=== PATIENT | male | born 1960 | race Caucasian/White ===

== ENCOUNTER → 2016-12-28 | Outpatient (CLI) | payer OTHER ==
[~2016-12-28] MED LIST: ASPIRIN81 M1 PO; FLOMAX0.4 MG PO; HYDROCODONE BIT1 T11 PO; LISINOPRIL10 M1 PO; NAPROSYN500 MG PO
== END | disposition home or self-care (01) ==
LOC: ORTHO 03:57
DX: S83.141A Lateral subluxation of proximal end of tibia, right knee, initial encounter (principal); S83.142A Lateral subluxation of proximal end of tibia, left knee, initial encounter; M25.511 Pain in right shoulder; X58.XXXA Exposure to other specified factors, initial encounter; Y93.89 Activity, other specified; Y92.89 Other specified places as the place of occurrence of the external cause; Y99.8 Other external cause status

== ENCOUNTER → 2018-08-22 | Outpatient (CLI) | payer OTHER | LOC: RAD 15:09 | DX: M17.0 Bilateral primary osteoarthritis of knee (principal) ==

== ENCOUNTER 2019-09-17 18:25 | Emergency (ER) | payer SELFPAY ==
[~2019-09-17] VITALS: Ht 167.6 cm; Wt 95.3 kg
[2019-09-17 19:04] LABS: BASO % 0.2 % (0.0-1.0); EOS # 0.3 10*3/uL (0.0-0.4); EOS % 2.8 % (1.0-4.0); HEMATOCRIT 49.9 % (42.0-52.0); HEMOGLOBIN 16.5 g/dl (14.0-18.0); LYMPH % 22.3 % (27.0-41.0); MEAN CORPUSCULAR HGB 29.1 pg (27.0-31.0); MEAN CORPUSCULAR HGB CONC 33.1 g/dl (33.0-37.0); MEAN PLATELET VOLUME 9.4 fl (9.6-12.3); MONO # 0.7 10*3/uL (0.1-1.0); MONO % 7.7 % (3.0-9.0); NEUT % 66.7 % (47.0-73.0); PLATELET COUNT AUTOMATED 234 10*3/uL (130-400); RED BLOOD COUNT 5.67 10*6/uL (4.50-5.90); RED CELL DISTRI WIDTH 13.4 % (0-14.5)
[2019-09-17 19:19] LABS: ALBUMIN 3.7 gm/dl (3.1-4.5); ALKALINE PHOSPHATASE 70 U/L (45-117); BUN 14 mg/dl (7-24); CHLORIDE 107 mmol/L (98-107); CREATININE 0.96 mg/dL (0.70-1.30); POTASSIUM 3.4 mmol/L (3.5-5.1); SGOT/AST 15 IU/L (3-35); SGPT/ALT 27 U/L (12-78); SODIUM 143 mmol/L (136-145); TOTAL PROTEIN 7.7 gm/dL (6.4-8.2)
[2019-09-17] MEDS ORDERED: IBU600 M1 PO (19:31)
[2019-09-17] MEDS ORDERED: CLINDAMYCIN HC300 MG PO (19:31)
== END 2019-09-17 20:56 | disposition home or self-care (01) ==
LOC: ED 18:25
PROVIDERS: Physician Assistant
DX: L02.01 Cutaneous abscess of face (principal); R22.0 Localized swelling, mass and lump, head; Z79.899 Other long term (current) drug therapy; Z79.82 Long term (current) use of aspirin

== ENCOUNTER 2020-05-28 09:26 | Inpatient (IN) | payer OTHER ==
[~2020-05-28] VITALS: Ht 167.6 cm; Wt 92.3 kg
[~2020-05-28 09:26] MED LIST changes: +CLINDAMYCIN HC300 MG PO; +IBU600 M1 PO
--- NOTE | 2020-05-28 09:30 | NUR ---
IV started left antecubital with #20 protective cath after 0 attempts. Site prepped with Chloroprep. Sterile dressing applied. Patient tolerated procedure well. NATE NAVARRO
--- NOTE | 2020-05-28 09:30 | NUR ---
A 60, admitted to , under the services of VLADIMIR Louis DO with a diagnosis of ACUTE ABSCESS OF FACE, CELLULITIS OF FACE AND NECK. Chief complaint is ABSCESS LIP. Patient arrived via ambulatory from [place]. Monitor applied. Initial assessment completed. Vital signs taken and recorded. VLADIMIR LOUIS DO notified of admission to the unit. Orders received. See assessment for past medical history, medications and allergies. Patient and/or family oriented to unit. [facility]. Clothing/patient valuable form completed. NATE NAVARRO
[2020-05-28] MEDS ORDERED: AMLODIPINE BESYL5 MG PO (09:44)
[2020-05-28] MEDS ORDERED: OMEPRAZOLE40 MG PO (09:44)
[2020-05-28] MEDS ORDERED: TAMSULOSIN HCL0.4 MG PO (09:45)
--- NOTE | 2020-05-28 09:51 | NUR ---
DAMIEN TARANGO IN TO SEE PATIENT
--- NOTE | 2020-05-28 10:08 | NUR ---
DAMIEN NOTIFIED OF UPDATED MED LIST
--- NOTE | 2020-05-28 10:12 | NUR ---
NOTIFIED DR BAUER OF NEW CONSULT, HE STATES KEEP PT NPO FOR NOW
[2020-05-28 10:13] VITALS: BP 137/87
--- NOTE | 2020-05-28 10:20 | NUR ---
NORCO PO GIVEN FOR COMPLAINTS OF LIP PAIN RATED 9/10. WILL MONITOR FOR EFFECTIVENESS. CALL LIGHT WITHIN REACH
[2020-05-28 10:36] LABS: BASO % 0.3 % (0.0-1.0); EOS # 0.3 10*3/uL (0.0-0.4); EOS % 2.5 % (1.0-4.0); HEMATOCRIT 43.7 % (42.0-52.0); LYMPH # 1.8 10*3/uL (1.3-4.4); LYMPH % 15.1 % (27.0-41.0); MEAN CELL VOLUME 87.1 fl (80.0-94.0); MEAN CORPUSCULAR HGB 28.5 pg (27.0-31.0); MEAN CORPUSCULAR HGB CONC 32.7 g/dl (33.0-37.0); MEAN PLATELET VOLUME 9.6 fl (9.6-12.3); MONO # 0.9 10*3/uL (0.1-1.0); MONO % 8.1 % (3.0-9.0); NEUT # 8.6 10*3/uL (2.3-7.9); NEUT % 73.6 % (47.0-73.0); PLATELET COUNT AUTOMATED 212 10*3/uL (130-400); RED BLOOD COUNT 5.02 10*6/uL (4.50-5.90); RED CELL DISTRI WIDTH 13.9 % (0-14.5); WHITE BLOOD COUNT 11.6 10*3/uL (4.8-10.8)
[2020-05-28 11:02] LABS: ALBUMIN 3.2 gm/dl (3.1-4.5); ALKALINE PHOSPHATASE 57 U/L (45-117); BUN 13 mg/dl (7-24); CHLORIDE 103 mmol/L (98-107); CREATININE 0.74 mg/dL (0.70-1.30); POTASSIUM 3.5 mmol/L (3.5-5.1); SGOT/AST 10 IU/L (3-35); SGPT/ALT 18 U/L (12-78); SODIUM 137 mmol/L (136-145); TOTAL PROTEIN 7.4 gm/dL (6.4-8.2)
--- NOTE | 2020-05-28 11:15 | NUR ---
PT STATES PAIN MED NO EFFECTIVE
--- NOTE | 2020-05-28 12:45 | NUR ---
DR BAUER ON THE FLOOR AND STATES THAT THE CT WAS NEGATIVE SO NOTHING SURGICALLY NEEDING DONE, JUST TREAT WITH ANTIBIOTICS AND HE CAN BE A CLEAR DIET
--- NOTE | 2020-05-28 13:46 | NUR ---
NOTIFIED DAMIEN TARANGO THAT PT WANTS TO LEAVE AMA, SHE SAID TO LET DR BAUER KNOW
--- NOTE | 2020-05-28 13:49 | NUR ---
NOTIFIED DR BAUER THAT PATIENT WANTS TO LEAVE AMA
--- NOTE | 2020-05-28 13:51 | NUR ---
NOTIFIED [facility] PRODUCT MANAGER OF PT LEAVING AMA
--- NOTE | 2020-05-28 14:02 | NUR ---
SPOKE TO PT FATHER TO LET HIM KNOW THAT PATIENT IS LEAVING AMA AND NEEDS RIDE, HE STATES HE WILL BE HERE IN 25 MINS
--- NOTE | 2020-05-28 14:03 | NUR ---
IV TAKEN OUT, PT HAS NO QUESTIONS AT THIS TIME AND IS RECOMENDED HE STAY FOR IV ANTIBIOTICS, BUT DOES NOT WANT TO. NO FURTHER QUESTIONS AT THIS TIME
--- NOTE | 2020-05-28 14:18 | NUR ---
PT OFF FLOOR AT THIS TIME
== END 2020-05-28 14:03 | disposition left against medical advice (07) | DRG 603 ==
LOC: 4E 09:26
PROVIDERS: Registered Nurse; ADMIT Internal Medicine; ATTEND Internal Medicine
DX: L03.211 Cellulitis of face (principal); E44.0 Moderate protein-calorie malnutrition; L02.01 Cutaneous abscess of face; N40.0 Benign prostatic hyperplasia without lower urinary tract symptoms; M17.11 Unilateral primary osteoarthritis, right knee; Z53.29 Procedure and treatment not carried out because of patient's decision for other reasons; R73.9 Hyperglycemia, unspecified; E83.51 Hypocalcemia; K21.9 Gastro-esophageal reflux disease without esophagitis; I10 Essential (primary) hypertension; Z82.49 Family history of ischemic heart disease and other diseases of the circulatory system; Z79.899 Other long term (current) drug therapy; Z68.32 Body mass index [BMI] 32.0-32.9, adult

== ENCOUNTER 2022-02-27 17:09 | Observation (INO) | payer OTHER ==
[~2022-02-27] VITALS: Ht 167.6 cm; Wt 100.5 kg
[~2022-02-27 17:09] MED LIST changes: +AMLODIPINE BESYL5 MG PO; +OMEPRAZOLE40 MG PO; +TAMSULOSIN HCL0.4 MG PO
[2022-02-27 17:31] VITALS: BP 143/75
[2022-02-27 18:08] LABS: BASO % 0.1 % (0.0-1.0); EOS % 0.4 % (1.0-4.0); HEMATOCRIT 46.5 % (42.0-52.0); LYMPH # 1.1 10*3/uL (1.3-4.4); LYMPH % 10.4 % (27.0-41.0); MEAN CELL VOLUME 84.5 fl (80.0-94.0); MEAN CORPUSCULAR HGB 28.2 pg (27.0-31.0); MEAN CORPUSCULAR HGB CONC 33.3 g/dl (33.0-37.0); MEAN PLATELET VOLUME 9.1 fl (9.6-12.3); MONO # 0.9 10*3/uL (0.1-1.0); NEUT # 8.1 10*3/uL (2.3-7.9); NEUT % 79.5 % (47.0-73.0); PLATELET COUNT AUTOMATED 187 10*3/uL (130-400); RED CELL DISTRI WIDTH 14.1 % (0-14.5); WHITE BLOOD COUNT 10.1 10*3/uL (4.8-10.8)
[2022-02-27 18:26] LABS: ALKALINE PHOSPHATASE 58 U/L (45-117); BUN 19 mg/dl (7-24); CHLORIDE 100 mmol/L (98-107); CREATININE 0.89 mg/dL (0.70-1.30); SGOT/AST 17 IU/L (3-35); SGPT/ALT 28 U/L (12-78); SODIUM 133 mmol/L (136-145); TOTAL PROTEIN 7.6 gm/dL (6.4-8.2)
[2022-02-28 00:20] VITALS: BP 152/78
[2022-02-28 06:40] LABS: BASO % 0.1 % (0.0-1.0); HEMATOCRIT 44.9 % (42.0-52.0); LYMPH # 0.8 10*3/uL (1.3-4.4); LYMPH % 8.8 % (27.0-41.0); MEAN CELL VOLUME 84.4 fl (80.0-94.0); MEAN CORPUSCULAR HGB 27.8 pg (27.0-31.0); MEAN PLATELET VOLUME 9.5 fl (9.6-12.3); MONO # 0.2 10*3/uL (0.1-1.0); MONO % 1.9 % (3.0-9.0); NEUT # 8.3 10*3/uL (2.3-7.9); NEUT % 88.6 % (47.0-73.0); PLATELET COUNT AUTOMATED 198 10*3/uL (130-400); RED BLOOD COUNT 5.32 10*6/uL (4.50-5.90); RED CELL DISTRI WIDTH 13.8 % (0-14.5); WHITE BLOOD COUNT 9.4 10*3/uL (4.8-10.8)
[2022-02-28 06:50] LABS: ACT PARTIAL THROMBO TIME 30.5 SECONDS (20.0-32.1)
[2022-02-28 07:06] LABS: BUN 16 mg/dl (7-24); CHLORIDE 105 mmol/L (98-107); CHOLESTEROL 136 mg/dL (<200); CREATININE 0.79 mg/dL (0.70-1.30); POTASSIUM 4.2 mmol/L (3.5-5.1); SGOT/AST 17 IU/L (3-35); SGPT/ALT 24 U/L (12-78); SODIUM 136 mmol/L (136-145); TOTAL PROTEIN 6.8 gm/dL (6.4-8.2); TRIGLYCERIDES 74 mg/dl (<150)
[2022-02-28 07:11] LABS: ALKALINE PHOSPHATASE 49 U/L (45-117); FREE T4 1.16 ng/dl (0.76-1.46); LDL CHOLESTEROL 83 mg/dL (9-159); THYROID STIM HORMONE (HS) 0.819 uIU/ml (0.358-4.75)
[2022-02-28 08:00] VITALS: BP 139/68
[2022-02-28 08:41] LABS: VITAMIN D, 25-HYDROXY 14.1 ng/mL (30-100)
[2022-02-28] MEDS ORDERED: PREDNISONE10 MG PO (11:09)
[2022-02-28] MEDS ORDERED: AUGMENTIN 875-875 MG PO (11:09)
[2022-02-28] MEDS ORDERED: ACYCLOVIR400 MG PO (11:09)
== END 2022-02-28 12:39 | disposition home or self-care (01) ==
LOC: ED 17:09 → 5E 21:56 → EDHOLD 21:56 → 5E 23:10
PROVIDERS: Emergency Medicine; Internal Medicine; ADMIT Student in an Organized Health Care Education/Training Program; ATTEND Student in an Organized Health Care Education/Training Program
DX: R59.1 Generalized enlarged lymph nodes (principal); A41.9 Sepsis, unspecified organism; T78.3XXA Angioneurotic edema, initial encounter; R50.9 Fever, unspecified; R00.0 Tachycardia, unspecified; R70.0 Elevated erythrocyte sedimentation rate; E87.1 Hypo-osmolality and hyponatremia; R73.9 Hyperglycemia, unspecified; R79.82 Elevated C-reactive protein (CRP); M17.11 Unilateral primary osteoarthritis, right knee; R22.0 Localized swelling, mass and lump, head; N40.0 Benign prostatic hyperplasia without lower urinary tract symptoms; K21.9 Gastro-esophageal reflux disease without esophagitis; R10.9 Unspecified abdominal pain; I10 Essential (primary) hypertension; E44.0 Moderate protein-calorie malnutrition; B00.2 Herpesviral gingivostomatitis and pharyngotonsillitis; Z79.899 Other long term (current) drug therapy; Y92.89 Other specified places as the place of occurrence of the external cause

== ENCOUNTER → 2024-09-07 | Outpatient (CLI) | payer OTHER ==
[~2024-09-07] MED LIST changes: +ACYCLOVIR400 MG PO; +AUGMENTIN 875-875 MG PO; +PREDNISONE10 MG PO
[2024-09-08 19:06] LABS: AMPHETAMINE SCREEN, URINE Negative ng/mL (Cutoff=1000); BARBITURATES SCREEN, URINE Negative ng/mL (Cutoff=200); BENZODIAZEPINES SCREEN URINE Negative ng/mL (Cutoff=200); CANNABINOID SCREEN, URINE Negative ng/mL (Cutoff=20); CREATININE, UR 25.4 mg/dL (20.0-300.0); MEPERIDINE SCREEN, URINE Negative ng/mL (Cutoff=200); METHADONE SCREEN, URINE Negative ng/mL (Cutoff=300); OPIATE SCREEN, URINE Negative ng/mL (Cutoff=300); OXYCODONE SCREEN URINE Negative ng/mL (Cutoff=100); PH URINE 8.9 (4.5-8.9); PROPOXYPHENE SCREEN, URINE Negative ng/mL (Cutoff=300)
== END | disposition home or self-care (01) ==
LOC: LAB 16:31
PROVIDERS: ATTEND Family Medicine
DX: Z79.899 Other long term (current) drug therapy (principal)

== ENCOUNTER → 2025-09-13 | Outpatient (CLI) | payer OTHER | END | disposition home or self-care (01) | LOC: D 13:54 | PROVIDERS: ATTEND Family Medicine | DX: E66.812 Obesity, class 2 (principal) ==